=== PATIENT | male | born 1945 | race Caucasian/White ===

== ENCOUNTER 2016-12-02 13:30 | Inpatient (IN) | payer BC ==
[2016-12-09] MEDS ORDERED: CELECOXIB 100 MG CAPSULE PO ONE (06:00)
[2016-12-09] MEDS ORDERED: METOCLOPRAMIDE 10 MG TABLET PO ONE (06:00)
[2016-12-09] MEDS ORDERED: FAMOTIDINE 20MG TABLET PO ONE (06:00)
[2016-12-09] MEDS ORDERED: VANCOMYCIN HCL 1,000 MG in 0.9 % SODIUM CHLORIDE 250ML 250 ML IVPB ONE (06:00)
[2016-12-09] MEDS ORDERED: MECLIZINE 25 MG TABLET PO ONE (06:00)
[2016-12-09] MEDS ORDERED: CEFAZOLIN 2 Gram 2 GM/50 ML BAG IVPB ONE (06:00)
[2016-12-09 08:30] LABS: ABO GROUP O; ANTIBODY SCREEN NEGATIVE (NEGATIVE); RH TYPE POSITIVE
[2016-12-09] MEDS ORDERED: ACETAMINOPHEN W/ CODEINE 300MG/60MG TABLET PO PRN ×2 (11:09)
[2016-12-09] MEDS ORDERED: AL HYDROX/MAG HYDROX 30ML UD PO PRN (11:09)
[2016-12-09] MEDS ORDERED: MAGNESIUM HYDROXIDE 30 ML UDC PO PRN (11:09)
[2016-12-09] MEDS ORDERED: TRAMADOL HCL 50 MG TABLET PO PRN (11:09)
[2016-12-09] MEDS ORDERED: BISACODYL 10 MG SUPP RC PRN (11:09)
[2016-12-09] MEDS ORDERED: HYDROCODONE/APAP 10/325 TABLET PO PRN (11:09)
[2016-12-09] MEDS ORDERED: NALOXONE 0.4 MG/1 ML VIAL IVP PRN (11:09)
[2016-12-09] MEDS ORDERED: HYDROMORPHONE HCL 1MG/ML **SYRINGE IM PRN (11:09)
[2016-12-09] MEDS ORDERED: ZOLPIDEM TARTRATE 5 MG TABLET PO PRN (11:09)
[2016-12-09] MEDS ORDERED: ONDANSETRON HCL IV 4 MG/2 ML VIAL IVP PRN (11:09)
[2016-12-09] MEDS ORDERED: KETOROLAC 30 MG/ML VIAL IVP PRN ×2 (11:09)
[2016-12-09] MEDS ORDERED: DIPHENHYDRAMINE HCL 25 MG CAPSULE PO PRN (11:09)
[2016-12-09] MEDS ORDERED: ACETAMINOPHEN 325 MG TAB PO PRN (11:09)
[2016-12-09] MEDS ORDERED: HYDROMORPHONE HCL 2 MG/ML VIAL IM PRN (11:09)
[2016-12-09] MEDS ORDERED: HYDROMORPHONE HCL 2 MG/ML VIAL IV ONE (14:00)
[2016-12-09] MEDS ORDERED: FENTANYL PF 100MCG/2ML VIAL IV ONE (14:00)
[2016-12-09] MEDS ORDERED: *PACU ONLY* KETAMINE HCL 10 MG/ML (20ML) VIAL IV ONE (14:00)
[2016-12-09] MEDS ORDERED: MIDAZOLAM HCL 2MG/2ML VIAL IV ONE (14:00)
[2016-12-09] MEDS ORDERED: PROPOFOL 10 MG/ML VIAL IV ONE (14:00)
[2016-12-09] MEDS: HYDROCODONE/APAP 10/325 TABLET PO PRN ×2 (15:01→19:40)
[2016-12-09] MEDS ORDERED: BUPIVACAINE 0.75% W/EPI MPF 30ML VIAL IVP ONE (15:08)
--- NOTE | 2016-12-09 15:11 | Operative Note ---
DATE: 12/09/2016 PREOPERATIVE DIAGNOSIS: END-STAGE ARTHROSIS OF THE RIGHT KNEE. POSTOPERATIVE DIAGNOSIS: END-STAGE ARTHROSIS OF THE RIGHT KNEE. PROCEDURE: Cemented right total knee arthroplasty using Montoya and Nephew Miladis II components with a size 7 Oxinium femur, size 8 stemmed tibial base plate, a 9 mm lift Highly Crosslinked tibial insert, and a 35 all-plastic patella. STAFF SURGEON: CARLOS NEVAREZ M.D. ANESTHESIA: SPINAL. PREPARATION: CHLORAPREP. INDIVIDUAL CONSIDERATIONS: NONE. PROCEDURE: The patient was taken to the Operating Room and placed supine on the operating table. He had a successful induction of a spinal anesthetic. His right lower extremity was prepped and draped in the usual fashion. The patient had midline approach to the knee. The limb was elevated and the tourniquet was inflated to 250 mmHg. Sharp dissection was carried down through the skin and subcutaneous tissues. Small veins were coagulated with a Bovie. A medial arthrotomy was performed. The patella was everted and the knee was flexed. He had exposed bone in the medial and primarily the lateral compartments with valgus deformity and bone loss especially off the femur and the tibia. The fat pad was resected, ACL was sacrificed, provisional anterior meniscectomies were performed, and the capsule was released from the medial proximal tibia. The initial femoral towboat pilot hole was then made freehand. The intramedullary femoral cutting jig was placed. It was cut in 7 degrees of valgus , adjusted for rotation, and secured with pins for a 10 mm resection. The initial transverse cut was then made. Skin guide was placed at the anterior and posterior towboat pilot holes, and it was found that a size 7 would be appropriate. The anterior and posterior cuts followed by chamfer cuts were made, osteophytes were removed, and a size 7 trial was found to fit well. The tibia was brought forward and the remainder of the meniscal remnants were removed with a Bovie. The extra-articular tibial cutting jig was placed, and it was cut in neutral with a 3-degree AP slope. Care was taken to adjust for flexion and rotation using the extra-articular alignment guide and bony landmarks. It was set for a 9-mm resection and keyed off the high medial side and secured with pins. When cutting the tibia, care was taken to preserve the PCL insertion on the tibia. Osteophytes were removed and I could actually fit a size 8 baseplate trial. It was adjusted for rotation and secured with pins. With a 9 mm trial and a femoral trial, there was excellent motion and stability. Ligamentous balance, rotation, and alignment were normal. The triflange tibial stamp was impacted, the patellar towboat pilot holes were impacted, and these trial components were removed. The patient had a thick patella and roughly 9 mm of bone was removed freehand with an oscillating saw. I could easily able to fit a 35 patella and the three towboat pilot holes were drilled. The tourniquet was let down briefly to get bleeders posteriorly then placed back up again. The knee was then copiously irrigated out with pulsatile Betadine and saline to remove any visual or palpable debris. Bony surfaces were then dried. A size 8 stem tibial baseplate was cemented into placed followed by impaction of a 9 mm lift tibial insert, followed by cementing of the size 7 Oxinium femur, followed by cementing of the 35 mm all- plastic patella. Implant surfaces were compressed, excess cement was removed, and after the cement had set, there was excellent motion and stability. Ligamentous balance, rotation alignment, and patellofemoral tracking were normal even though it was a valgus knee, I did not need to do a lateral release. Again, the tourniquet was let down and hemostasis was obtained with a Bovie. Again, thorough irrigation to remove any visual or palpable debris with pulsatile Betadine and saline. The periosteum and subcutaneous were infiltrated with 30 mL of 0.75% Marcaine with Epinephrine. The capsule was then closed with a running #2 Quill, subcutaneous was closed with a running 0 quill, and the skin was closed with justo. This patient did receive a gram of Tranexamic Acid preoperatively. We injected the knee with 30 mL of saline mixture with 1 gram of Tranexamic Acid and a sterile Bulkee compressive Aquacel-type dressing was applied. The patient tolerated the procedure well. Needle and sponge counts were correct. Estimated blood loss was minimal. He was taken back to Recovery in good condition. There were no complications. JOB NUMBER: [id number] [facility]
--- NOTE | 2016-12-09 15:39 | Rehab Evaluation ---
Patient Information - Patient Information Diagnosis: DJD R knee Ordered Treatment: PT Evaluate and Treat Status: Initial Evaluation Surgery: Yes Date of Surgery: 12/09/16 Past Medical/Surgical Hx: PAST MEDICAL/SURGICAL HISTORY Past Surgical History back sx-laminectomy;appy; colonoscopy; bilat cataract sx. cardioversion 2009 PMH - Respiratory Hx Respiratory Disorders Yes Hx Asthma No Hx Bronchitis No Hx Chronic Obstructive No Pulmonary Disease (COPD) Hx Dyspnea No Hx Pneumonia Yes: 1977 Hx Pulmonary Embolism No Hx Sleep Apnea Yes Hx Tuberculosis No Hx of CPAP Yes Hx of URI No Comment: hayfever allergies can cause wheeziness PMH - Cardiovascular Hx Cardiovascular Disorders Yes Hx Abnormal EKG No Hx Cardiac Catheterization No Hx Chest Pain No Hx Congestive Heart Failure No Hx Deep Vein Thrombosis Yes: bilat legs/left most recent(5 yrs ago) Hx Edema No Hx Heart Attack No Hx Hypertension No Hx Hypotension No Hx Irregular Heartbeat Yes: Afib dx 2009 Hx Palpitations No Hx Pacemaker/Defibrillator No Hx Vascular Disease No Hx Heart Murmur Yes: no problems with it Exercise Tolerance Good PMH - Neuro Hx Neurological Disorders No PMH - GI Hx Gastrointestinal Disorders Yes Hx Abdominal Pain No Hx Celiac Disease No Hx Crohn's Disease No Hx Diverticulitis No Hx Gastrointestinal Bleed No Hx Gastroesophageal Reflux Yes: omeprazole Hx Hepatitis/Jaundice No Hx Hiatal Hernia No Hx Irritable Bowel No Hx Liver Disease No Hx Nausea/Vomiting No Hx Obstructive Bowel No Hx Pancreatitis No Hx Rectal Bleeding No Hx Ulcer Yes: long ago Hx Weight Loss/Weight Gain No PMH - Hx Genitourinary Disorders Yes Hx Bladder Problem Yes: on Flomax Hx Dialysis No Hx Kidney Stones No Hx Prostate Problems No Hx Renal Disease No Hx Urinary Tract Infection No PMH - Endocrine Hx Endocrine Disorders Yes Hx Diabetes No Hx Thyroid Disease Yes: on synthroid PMH - Musculoskeletal Hx Musculoskeletal Disorders Yes Hx Arthritis Yes: knees/back & rt thumb Hx Back Injury Yes: ruptured disc repaired Hx Fibromyalgia No Hx Gout No Hx Musculoskeletal Disease No Hx Osteoporosis No PMH - Psych Hx Psychiatric Problems No PMH - Hematology/Oncology Hx Hematology/Oncology Yes Disorders Hx Anemia No Hx Blood Disorders No Hx Bruising No 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 The patient 's bedroom is on the first floor with a full bathroom and kitchen. The bathroom is equipped with a step in shower with a seat and a regular toilet. No grab bars are present. The patient was vended a standard walker.) Precautions: [facility], Fall - Time With Patient Total Time Spent With Patient (Min): 30 Treatment Procedures: Detail (Initial Evaluation. The patient completed LE strengthening exercises independently including: quad sets, hamstring sets, gluteal sets, heel slides, ankle pumps and SLR all x 5 reps.) Subjective Information - Subjective Information Per Patient (The patient had complaints of dizziness and no complaints of pain.) Objective Data - Mental Status Patient Orientation: Oriented x3 - Visual Perception Appears within normal limits for therapeutic activities - ROM Not within normal limits (The patient's L LE AROM is WNL. The patient's R LE AROM was not formally tested secondary to s/p surgery.) - Strength/Tone Not within normal limits (The patient's L LE strength is generally 4+ to 5/5. The patient's R LE strength was not formally tested secondary to status post surgery , however the patient's strength is functional (ie: pt is able to acheive a SLR).) - Bed Mobility Independent (The patient was independent with supine to and from sit transfer and scooting up in bed.) - Transfers Independent (Indpendent with sit to and from stand transfers. Independent with toilet transfer with use of grab bar.) - Balance Balance Sitting: Good Balance Standing: Good (The patient was able to wash his hands and pull up and down his pants without support of walker.) - Sensation Intact - Gait Detail (The patient ambulated with wheeled walker with supervision for safety 13 feet x 1, 60 feet x 1 WBAT on the R LE.) Therapy Assessment - Therapy Assessment Detail (The patient was independent with bed mobility and transfers and required supervision for safety only for ambulation. Feel the patient will progress well with mobility.) Problem List - Problem List Physical Therapy Problem List: Detail (1) Decreased R knee AROM and R LE strength as to be expected following surgery. 2) Nonambulatory on stairs) Goals - Goals Physical Therapy Goals: 1) The patient will ambulate with assistive device independently WBAT on the R LE and with supervision/independent on stairs. 2) The patient will be independent with all transfers. Prognosis - Prognosis Good Plan - Plan Physical Therapy Plan: PT 1-2 times a day for gait training, transfer training and instruction in HEP until inpatient PT goals are met.
[2016-12-09] MEDS: POTASSIUM CHLORIDE/D5-0.9%NACL 20 MEQ/1,000 ML BAG IV SCH (17:01)
[2016-12-09] MEDS: CEFAZOLIN 2 Gram 2 GM/50 ML BAG IVPB SCH (17:05)
[2016-12-09] MEDS: DOCUSATE SODIUM 100 MG CAPSULE PO SCH (21:27)
[2016-12-10] MEDS: CEFAZOLIN 2 Gram 2 GM/50 ML BAG IVPB SCH ×2 (00:56→08:33)
[2016-12-10] MEDS: POTASSIUM CHLORIDE/D5-0.9%NACL 20 MEQ/1,000 ML BAG IV SCH (00:56)
[2016-12-10] MEDS: HYDROCODONE/APAP 10/325 TABLET PO PRN ×2 (01:02→06:05)
[2016-12-10 06:54] LABS: HEMOGLOBIN 12.7 gm/dl (14.0-18.0)
[2016-12-10] MEDS ORDERED: PATIENT OWN MED: OMEPRAZOLE 20 MG PO SCH (07:00)
[2016-12-10] MEDS ORDERED: PATIENT OWN MED: LEVOTHYROXINE 125 MCG PO SCH (07:00)
[2016-12-10 08:14] LABS: BLOOD UREA NITROGEN 12 mg/dL (8-23); CREATININE 0.8 mg/dL (0.7-1.2); EST GLOMERULAR FILTRATION RATE > 60 mL/min; GLUCOSE,RANDOM 121 mg/dL (74-109)
[2016-12-10] MEDS: DOCUSATE SODIUM 100 MG CAPSULE PO SCH (09:26)
[2016-12-10] MEDS ORDERED: PATIENT OWN MED: TAMSULOSIN 0.4 MG PO SCH (10:00)
[2016-12-10] MEDS ORDERED: FERROUS SULFATE 325 MG TAB PO SCH (10:00)
[2016-12-10] MEDS ORDERED: TRICOR 145 MG PO SCH (10:00)
[2016-12-10] MEDS ORDERED: SIMVASTATIN 80 MG PO SCH (10:00)
[2016-12-10] MEDS ORDERED: LORATADINE 10 MG PO SCH (10:00)
[2016-12-10] MEDS ORDERED: XARELTO 20 MG PO SCH (10:00)
--- NOTE | 2016-12-10 10:59 | Physical Therapy Tx Note ---
Physical Therapy Tx Note - Treatment Note Tolerated: Good (Patient able to tolerate more today and feels quite good being up walking, very little pain and a little concerned about knee bending. Able to walk at least 100 feet and up and down stairs with no increase in pain, only swelling.) Total Time Spent With Patient: 30 Physical Therapy Tx Note: Detail (Patient seen bedside, sitting up edge of bed with cryocuff on knee and compressive stockings on LES. Removed both of those and patient able to move sit to stand with CGA only from bed with standard walker and pushing on bed. Able to walk with standard walker and CGA to bathroom then washed hands and walked again with standard walker and CGA, WBAT right to stairs, down three steps with rail and folded walker for support with CGA then back up with good technique. Ambulated more with CGA about 100 feet then back to room with good technique and sat edge of bed for standard knee exercises with good tolerance and good ROM. Re-attached cryocuff and compressive stockings after patient transferred back into bed. Left tray table and call light close.) Physical Therapy Problem List: Detail (1) Decreased R knee AROM and R LE strength as to be expected following surgery. 2) Nonambulatory on stairs) Physical Therapy Goals: 1) The patient will ambulate with assistive device independently WBAT on the R LE and with supervision/independent on stairs. 2) The patient will be independent with all transfers. Prognosis: Good (Patient doing extremely well and ROM quite good already and mobility improved very well. Should be able to go home today with . Has passed skills for gait, exercises, mobility and stairs. Plan to see this afternoon if needed for more endurance and better gait sequence. Tends to let left LE go first secondary to previous issue.) Physical Therapy Plan: PT 1-2 times a day for gait training, transfer training and instruction in HEP until inpatient PT goals are met.
--- NOTE | 2016-12-10 12:31 | Rehab Evaluation ---
Patient Information - Patient Information Diagnosis: DJD R knee Ordered Treatment: OT Evaluate and Treat Status: Initial Evaluation Surgery: Yes (right total knee arthroplasty) Date of Surgery: 12/09/16 Past Medical/Surgical Hx: PAST MEDICAL/SURGICAL HISTORY Past Surgical History back sx-laminectomy;appy; colonoscopy; bilat cataract sx. cardioversion 2009 PMH - Respiratory Hx Respiratory Disorders Yes Hx Asthma No Hx Bronchitis No Hx Chronic Obstructive No Pulmonary Disease (COPD) Hx Dyspnea No Hx Pneumonia Yes: 1978 Hx Pulmonary Embolism No Hx Sleep Apnea Yes Hx Tuberculosis No Hx of CPAP Yes Hx of URI No Comment: hayfever allergies can cause wheeziness PMH - Cardiovascular Hx Cardiovascular Disorders Yes Hx Abnormal EKG No Hx Cardiac Catheterization No Hx Chest Pain No Hx Congestive Heart Failure No Hx Deep Vein Thrombosis Yes: bilat legs/left most recent(5 yrs ago) Hx Edema No Hx Heart Attack No Hx Hypertension No Hx Hypotension No Hx Irregular Heartbeat Yes: Afib dx 2009 Hx Palpitations No Hx Pacemaker/Defibrillator No Hx Vascular Disease No Hx Heart Murmur Yes: no problems with it Exercise Tolerance Good PMH - Neuro Hx Neurological Disorders No PMH - GI Hx Gastrointestinal Disorders Yes Hx Abdominal Pain No Hx Celiac Disease No Hx Crohn's Disease No Hx Diverticulitis No Hx Gastrointestinal Bleed No Hx Gastroesophageal Reflux Yes: omeprazole Hx Hepatitis/Jaundice No Hx Hiatal Hernia No Hx Irritable Bowel No Hx Liver Disease No Hx Nausea/Vomiting No Hx Obstructive Bowel No Hx Pancreatitis No Hx Rectal Bleeding No Hx Ulcer Yes: long ago Hx Weight Loss/Weight Gain No PMH - Hx Genitourinary Disorders Yes Hx Bladder Problem Yes: on Flomax Hx Dialysis No Hx Kidney Stones No Hx Prostate Problems No Hx Renal Disease No Hx Urinary Tract Infection No PMH - Endocrine Hx Endocrine Disorders Yes Hx Diabetes No Hx Thyroid Disease Yes: on synthroid PMH - Musculoskeletal Hx Musculoskeletal Disorders Yes Hx Arthritis Yes: knees/back & rt thumb Hx Back Injury Yes: ruptured disc repaired Hx Fibromyalgia No Hx Gout No Hx Musculoskeletal Disease No Hx Osteoporosis No PMH - Psych Hx Psychiatric Problems No PMH - Hematology/Oncology Hx Hematology/Oncology Yes Disorders Hx Anemia No Hx Blood Disorders No Hx Bruising No 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 He is planning to stay on the main floor temporarily. He has a walk in shower with corner seat and an elevated toilet seat. Prior to surgery he was Ind with all ADLs/IADLs, will be completing all home mgmt, meal prep and laundry. He has a standard walker.) Precautions: [facility], Fall - Time With Patient Total Time Spent With Patient (Min): 45 Treatment Procedures: Detail (OT eval low complexity) Subjective Information - Subjective Information Per Patient Objective Data - Pain Pain Present: Yes (7/10 pain in right knee) - Mental Status Patient Orientation: Oriented x3 - Visual Perception Appears within normal limits for therapeutic activities (Pt wears glasses) - ROM Within normal limits (Alvaro UE AROM WNL) - Strength/Tone Within normal limits (Alvaro UE strength WNL) - Coordination Appears within normal limits for therapeutic activities - Bed Mobility Independent (Ind with supine to sit) - Transfers Independent (Ind with sit to stand from EOB and chair.) - Balance Balance Sitting: Good Balance Standing: Good - Sensation Intact - Gait Detail (Pt ambulating in room with standard walker Indly.) - ADL's/IADL's Detail (Pt able to demonstrate Ind with doffing gown and slippers, sponge bathing in standing at sink, toileting, donning shirt, underpants, pants, socks and slip on shoes using modified dressing technique.) Therapy Assessment - Therapy Assessment Detail (Pt is safe and Ind with ADLs and functional mobility needed for return home with spouse.) Problem List - Problem List Physical Therapy Problem List: Detail (1) Decreased R knee AROM and R LE strength as to be expected following surgery. 2) Nonambulatory on stairs) Occupational Therapy Problem List: Detail (No OT problems identified at this time.) Goals - Goals Physical Therapy Goals: 1) The patient will ambulate with assistive device independently WBAT on the R LE and with supervision/independent on stairs. 2) The patient will be independent with all transfers. Occupational Therapy Goals: No OT goals identified. Prognosis - Prognosis Good Plan - Plan Physical Therapy Plan: PT 1-2 times a day for gait training, transfer training and instruction in HEP until inpatient PT goals are met. Occupational Therapy Plan: No further IP OT recommended. Thank you for this referral.
--- NOTE | 2016-12-10 13:10 | Physical Therapy Tx Note ---
Physical Therapy Tx Note - Treatment Note Physical Therapy Tx Note: Detail (Patient was getting ready to go home. Patient reports he feels comfortable with ambulation on levels and stairs and has passed all PT skills per am PT.) Physical Therapy Problem List: Detail (1) Decreased R knee AROM and R LE strength as to be expected following surgery. 2) Nonambulatory on stairs) Physical Therapy Goals: 1) The patient will ambulate with assistive device independently WBAT on the R LE and with supervision/independent on stairs. 2) The patient will be independent with all transfers. Physical Therapy Plan: Patient is discharged from inpatient PT. All PT goals have been met.
--- NOTE | 2016-12-11 08:00 | Discharge Summary ---
DATE OF ADMISSION: 12/09/2016. DATE OF DISCHARGE: 12/10/2016. DATE OF SURGERY: 12/09/2016. HISTORY: Mr. Reyes is a delightful 71-year-old male who presents with endstage arthrosis of his right hip. He was admitted after right total knee arthroplasty. Postoperatively he did extremely well. He was independent the morning after surgery. LABORATORY DATA: His discharge hemoglobin was 12.7, and he did not require transfusion. PLAN: The plan is to discharge him to home in the care of his family. Home physical therapy and a visiting nurse have been arranged. He will be given Grace for pain. He chronically takes Xarelto for atrial fibrillation, and so he will jus resume his previous dose. The visiting nurse will remove his sutures in two weeks. He will follow up in my office in four weeks. FINAL DIAGNOSIS/CURRENT DIAGNOSIS: ENDSTAGE ARTHROSIS OF THE RIGHT KNEE. SECONDARY DIAGNOSIS: ATRIAL FIBRILLATION, CHRONIC. OPERATIONS AND PROCEDURES: Cemented right total knee arthroplasty. CARLOS NEVAREZ M.D. Date & Time JOB NUMBER: [id number] MTDD
== END 2016-12-10 13:50 | disposition home or self-care (01) | DRG 470 ==
LOC: MEDSURG 12-09 06:37
PROVIDERS: ADMIT Orthopaedic Surgery; ATTEND Orthopaedic Surgery
PROC: 0SRC069 Replacement of Right Knee Joint with Oxidized Zirconium on Polyethylene Synthetic Substitute, Cemented, Open Approach (ICD-10-PCS; principal; 2016-12-09 09:00)
DX: M17.11 Unilateral primary osteoarthritis, right knee (principal); E78.00 Pure hypercholesterolemia, unspecified; E03.9 Hypothyroidism, unspecified
CPT/HCPCS: 80048; 85014; 85018; 86850; 86900; 86901; 97110; 97116; 97165; J3480; J3490